=== PATIENT | female | born 1975 | race Caucasian/White ===

== ENCOUNTER 2016-06-11 22:39 | Emergency (ER) | payer BC, OTHER ==
[~2016-06-11] VITALS: Ht 162.6 cm; Wt 77.7 kg
[~2016-06-11 22:39] MED LIST: MOTRIN 600600 MG/TAB PO; PERCOCET 325 MG1 TA2 PO; PRENATAL1 TA1 PO; VALTREX 50500 MG/TAB PO
[2016-06-11 22:46] VITALS: TEMP 98
[2016-06-11] MEDS ORDERED: EFFEXOR XR75 MG/CAP PO (23:09)
[2016-06-11] MEDS ORDERED: EFFEXOR-XR150 MG PO (23:09)
[2016-06-11] MEDS ORDERED: PROTONIX 40MG T40 MG PO ×2 (23:10→23:15)
[2016-06-11] MEDS ORDERED: ZEMBRACE S3 MG/0.5 M SQ (23:10)
[2016-06-11] MEDS ORDERED: CAMBIA50 MG PO (23:13)
[2016-06-11] MEDS ORDERED: TOPAMAX 100MG100 M1 PO (23:13)
[2016-06-11] MEDS ORDERED: ULTRAM 50MG TAB50 MG PO (23:53)
[2016-06-11] MEDS ORDERED: ZOFRAN8 MG PO (23:53)
[2016-06-12 01:28] VITALS: BP 140/84; PULSE 75
== END 2016-06-12 01:35 | disposition home or self-care (01) ==
LOC: COL.ER 22:39
DX: R51 Headache (principal); R20.2 Paresthesia of skin
CPT/HCPCS: J1100; J1110; J1200; J1885; J2405; J2550; J2765; J7030

== ENCOUNTER 2016-08-08 18:18 | Observation (INO) | payer BC ==
[~2016-08-08] VITALS: Ht 162.6 cm; Wt 80.1 kg
[~2016-08-08 18:18] MED LIST changes: +CAMBIA50 MG PO; +EFFEXOR XR75 MG/CAP PO; +EFFEXOR-XR150 MG PO; +PROTONIX 40MG T40 MG PO; +TOPAMAX 100MG100 M1 PO; +ULTRAM 50MG TAB50 MG PO; +ZEMBRACE S3 MG/0.5 M SQ; +ZOFRAN8 MG PO
[2016-08-08 19:36] LABS: HEMOGLOBIN 12.4 g/dl (12.5-16.0); MEAN CELL VOLUME 87 fl (80.0-100.0); MEAN CORPUSCULAR HEMOGLOBIN 31 pg (27.0-31.0); MEAN CORPUSCULAR HGB CONC 35 g/dl (33.0-37.0); MEAN PLATELET VOLUME 10.5 fl (7.4-10.4); PLATELET COUNT 179 K/mm3 (130-400); RED BLOOD COUNT 4.05 M/mm3 (4.10-5.30); REDCELL DISTRIBUTION WIDTH-CV 13.3 % (11.5-14.5); WHITE BLOOD COUNT 12.6 K/mm3 (4.8-10.8)
[2016-08-08 19:42] LABS: ADD PATHOLOGY DIFF REVIEW NO; HEMATOCRIT 35.4 % (37.0-47.0)
[2016-08-08 19:47] LABS: ADJUSTED CALCIUM 9.2 mg/dL (8.4-10.2); ALBUMIN 3.7 gm/dL (3.5-5.0); BILIRUBIN,TOTAL 2.6 mg/dL (0.0-1.0); C-REACTIVE PROTEIN 4.9 mg/dL (0.0-0.9); CREATININE, serum 1.31 mg/dL (0.52-1.25); TOTAL PROTEIN 6.8 gm/dL (6.4-8.2)
[2016-08-08 19:51] LABS: BAND 8 % (0-10); METAMYELOCYTE 2 % (0-0); NEUTROPHILS 70 % (42.0-75.2); TOTAL CELLS COUNTED 100
[2016-08-08 19:52] LABS: ANISOCYTOSIS 1+; POTASSIUM 2.7 mmol/L (3.4-5.0)
[2016-08-08 20:03] LABS: ERYTHROCYTE SEDIMENTATION RATE 37 mm/hr (0-20)
[2016-08-08 21:53] VITALS: BP 125/83; PULSE 93; TEMP 98.8
[2016-08-08] MEDS ORDERED: PROTONIX20 MG PO (22:25)
[2016-08-08] MEDS ORDERED: CONCERTA18 MG PO (22:28)
[2016-08-08] MEDS ORDERED: SUBOXONE 8 MG-21 TAB SL (22:29)
[2016-08-08] MEDS ORDERED: BRINTELLIX10 PO (22:29)
[2016-08-08] MEDS ORDERED: PHENERGAN 25 TA25 MG PO (22:30)
[2016-08-08] MEDS ORDERED: RECLIPSEN 0.151 TAB PO (22:31)
[2016-08-08] MEDS ORDERED: ZEMBRACE S3 MG/0.5 M SQ (22:32)
[2016-08-09 03:45] VITALS: BP 123/74; PULSE 92; TEMP 98.5
[2016-08-09 07:50] VITALS: BP 122/73; PULSE 86; TEMP 97.7
[2016-08-09 07:53] LABS: MEAN CELL VOLUME 88 fl (80.0-100.0); MEAN CORPUSCULAR HGB CONC 34 g/dl (33.0-37.0); MEAN PLATELET VOLUME 10.5 fl (7.4-10.4); PLATELET COUNT 158 K/mm3 (130-400); RED BLOOD COUNT 3.56 M/mm3 (4.10-5.30); REDCELL DISTRIBUTION WIDTH-CV 13.5 % (11.5-14.5); WHITE BLOOD COUNT 10.8 K/mm3 (4.8-10.8)
[2016-08-09 08:00] LABS: ADD PATHOLOGY DIFF REVIEW NO; HEMATOCRIT 31.2 % (37.0-47.0); HEMOGLOBIN 10.7 g/dl (12.5-16.0); MEAN CORPUSCULAR HEMOGLOBIN 30 pg (27.0-31.0)
[2016-08-09 08:03] LABS: CALCIUM 8.2 mg/dL (8.4-10.2); CREATININE, serum 0.96 mg/dL (0.52-1.25)
[2016-08-09 13:56] VITALS: BP 133/84; PULSE 97; TEMP 97.8
[2016-08-09 14:39] LABS: ANISOCYTOSIS 1+; BAND 15 % (0-10); HYPOCHROMIA 1+; NEUTROPHILS 50 % (42.0-75.2); PLATELET ESTIMATE NORMAL (NORMAL); TOTAL CELLS COUNTED 100
[2016-08-09 16:05] VITALS: BP 120/72; PULSE 89; TEMP 97.9
[2016-08-09 20:01] VITALS: BP 128/86; PULSE 96; TEMP 97
[2016-08-09 23:45] VITALS: BP 105/76; PULSE 100; TEMP 97.8
[2016-08-10 02:56] VITALS: BP 125/74; PULSE 90; TEMP 99.1
[2016-08-10 07:30] VITALS: BP 126/80; PULSE 81; TEMP 98.6
[2016-08-10 07:46] LABS: ADJUSTED CALCIUM 9.2 mg/dL (8.4-10.2); ALBUMIN 2.9 gm/dL (3.5-5.0); BILIRUBIN,TOTAL 0.8 mg/dL (0.0-1.0); CALCIUM 8.3 mg/dL (8.4-10.2); CREATININE, serum 0.6 mg/dL (0.52-1.25); POTASSIUM 3.3 mmol/L (3.4-5.0); TOTAL PROTEIN 5.3 gm/dL (6.4-8.2)
[2016-08-10 11:39] VITALS: BP 126/82; PULSE 87; TEMP 98.4
[2016-08-10 15:48] VITALS: BP 129/88; PULSE 94; TEMP 97.6
[2016-08-10] MEDS ORDERED: MAGIC MOUTH PO (17:14)
== END 2016-08-10 18:45 | disposition home or self-care (01) ==
LOC: COL.ER 18:18 → MEDICAL 20:25
PROVIDERS: Emergency Medicine; Family Medicine; Physician Assistant
DX: R11.2 Nausea with vomiting, unspecified (principal); E87.2 Acidosis; E87.8 Other disorders of electrolyte and fluid balance, not elsewhere classified; E87.6 Hypokalemia; I77.6 Arteritis, unspecified; G43.909 Migraine, unspecified, not intractable, without status migrainosus
CPT/HCPCS: G0378; J1885; J2270; J2405; J7030

== ENCOUNTER → 2016-08-23 | Outpatient (CLI) | payer BC ==
[~2016-08-23] MED LIST changes: +BRINTELLIX10 PO; +CIPRO 500MG TA500 MG PO; +CONCERTA18 MG PO; +FLAGYL500 MG PO; +MAGIC MOUTH PO; +NORCO 325 MG-51 TAB PO; +PHENERGAN 25 TA25 MG PO; +PROTONIX20 MG PO; +RECLIPSEN 0.151 TAB PO; +SUBOXONE 8 MG-21 TAB SL; +ZOFRAN 4MG T4 MG/TAB PO
== END ==
LOC: COL.VAS 09:45
DX: R53.1 Weakness (principal)

== ENCOUNTER → 2016-09-27 | Outpatient (CLI) | payer BC | LOC: COL.RAD 08:10 | DX: R11.11 Vomiting without nausea (principal); R19.4 Change in bowel habit | CPT/HCPCS: A9541 ==

== ENCOUNTER 2016-09-28 19:16 | Emergency (ER) | payer BC ==
[~2016-09-28] VITALS: Ht 162.6 cm; Wt 78.2 kg
[~2016-09-28 19:16] MED LIST changes: -CIPRO 500MG TA500 MG PO; -FLAGYL500 MG PO; -NORCO 325 MG-51 TAB PO; -ZOFRAN 4MG T4 MG/TAB PO
[2016-09-28 19:30] VITALS: BP 144/89; TEMP 98.7
[2016-09-28 20:24] LABS: BASO % 0.3 % (0.0-2.0); EOS # 0.1 (0.0-0.7); EOS % 0.7 % (0-4.0); GRAN # 7.8 (1.4-6.5); GRAN % 64.7 % (42.2-75.2); HEMOGLOBIN 12.2 g/dl (12.5-16.0); LYMPH # 3.4 (1.2-3.4); LYMPH % 28.3 % (20.0-51.0); MEAN CELL VOLUME 93 fl (80.0-100.0); MEAN CORPUSCULAR HEMOGLOBIN 31 pg (27.0-31.0); MEAN CORPUSCULAR HGB CONC 33 g/dl (33.0-37.0); MEAN PLATELET VOLUME 9.4 fl (7.4-10.4); MONO # 0.7 (0.1-0.6); MONO % 5.8 % (1.7-9.3); PLATELET COUNT 396 K/mm3 (130-400); RED BLOOD COUNT 3.99 M/mm3 (4.10-5.30); REDCELL DISTRIBUTION WIDTH-CV 13.6 % (11.5-14.5); WHITE BLOOD COUNT 12.1 K/mm3 (4.8-10.8)
[2016-09-28 20:37] LABS: ADJUSTED CALCIUM 8.6 mg/dL (8.4-10.2); ALBUMIN 4.7 gm/dL (3.5-5.0); BILIRUBIN,TOTAL 0.5 mg/dL (0.0-1.0); CALCIUM 9.2 mg/dL (8.4-10.2); CREATININE, serum 0.63 mg/dL (0.52-1.25); POTASSIUM 3.5 mmol/L (3.4-5.0); TOTAL PROTEIN 8.1 gm/dL (6.4-8.2)
[2016-09-28 21:14] LABS: PH 5 (5-8); URINE APPEARANCE Hazy; URINE BACTERIA Rare /hpf; URINE BILIRUBIN Negative (NEGATIVE); URINE BLOOD 1+ (NEGATIVE); URINE COLOR Yellow; URINE GLUCOSE Negative (NEGATIVE); URINE KETONE Negative (NEGATIVE); URINE RBC 0-2 /hpf; URINE UROBILINOGEN Negative (NEGATIVE)
[2016-09-28] MEDS ORDERED: NORCO 325 MG-51 TAB PO (22:39)
[2016-09-28] MEDS ORDERED: CIPRO 500MG TA500 MG PO (22:39)
[2016-09-28] MEDS ORDERED: ZOFRAN 4MG T4 MG/TAB PO (22:39)
[2016-09-28] MEDS ORDERED: FLAGYL500 MG PO (22:39)
[2016-09-28 23:01] VITALS: PULSE 87
== END 2016-09-28 23:02 | disposition home or self-care (01) ==
LOC: COL.ER 19:16
PROVIDERS: Emergency Medicine
DX: K52.9 Noninfective gastroenteritis and colitis, unspecified (principal); R10.32 Left lower quadrant pain
CPT/HCPCS: J7030; Q9967

== ENCOUNTER 2017-01-03 14:25 | Emergency (ER) | payer BC ==
[~2017-01-03] VITALS: Ht 160 cm; Wt 85.9 kg
[~2017-01-03 14:25] MED LIST changes: +CIPRO 500MG TA500 MG PO; +FLAGYL500 MG PO; +NORCO 325 MG-51 TAB PO; +ZOFRAN 4MG T4 MG/TAB PO
[2017-01-03 16:40] LABS: BASO % 0.2 % (0.0-2.0); EOS % 0.1 % (0-4.0); GRAN # 10.5 (1.4-6.5); GRAN % 79.2 % (42.2-75.2); HEMATOCRIT 41.6 % (37.0-47.0); HEMOGLOBIN 14.3 g/dl (12.5-16.0); LYMPH # 2.1 (1.2-3.4); LYMPH % 16.1 % (20.0-51.0); MEAN CELL VOLUME 88 fl (80.0-100.0); MEAN CORPUSCULAR HEMOGLOBIN 30 pg (27.0-31.0); MEAN CORPUSCULAR HGB CONC 34 g/dl (33.0-37.0); MEAN PLATELET VOLUME 10.1 fl (7.4-10.4); MONO # 0.5 (0.1-0.6); PLATELET COUNT 265 K/mm3 (130-400); RED BLOOD COUNT 4.73 M/mm3 (4.10-5.30); REDCELL DISTRIBUTION WIDTH-CV 14.6 % (11.5-14.5); WHITE BLOOD COUNT 13.2 K/mm3 (4.8-10.8)
[2017-01-03 16:54] LABS: ADJUSTED CALCIUM 8.8 mg/dL (8.4-10.2); ALBUMIN 4.6 gm/dL (3.5-5.0); BILIRUBIN,TOTAL 0.6 mg/dL (0.0-1.0); CALCIUM 9.3 mg/dL (8.4-10.2); CREATININE, serum 0.56 mg/dL (0.52-1.25); POTASSIUM 4.2 mmol/L (3.4-5.0); TOTAL PROTEIN 8.1 gm/dL (6.4-8.2)
[2017-01-03 19:07] LABS: PH 8 (5-8); URINE APPEARANCE Hazy; URINE BACTERIA None Seen /hpf; URINE BILIRUBIN Negative (NEGATIVE); URINE BLOOD Negative (NEGATIVE); URINE COLOR Yellow; URINE GLUCOSE Negative (NEGATIVE); URINE KETONE Negative (NEGATIVE); URINE RBC 0-2 /hpf; URINE UROBILINOGEN Negative (NEGATIVE); URINE WBC None Seen /hpf
[2017-01-03 20:08] VITALS: BP 140/84; PULSE 87; TEMP 98.1
== END 2017-01-03 20:11 | disposition home or self-care (01) ==
LOC: COL.ER 14:25
PROVIDERS: Emergency Medicine
DX: R51 Headache (principal); R41.840 Attention and concentration deficit; F32.9 Major depressive disorder, single episode, unspecified; Z86.69 Personal history of other diseases of the nervous system and sense organs
CPT/HCPCS: J1885; J2405; J7030

== ENCOUNTER 2017-10-01 16:25 | Emergency (ER) | payer BC ==
[~2017-10-01] VITALS: Ht 162.6 cm; Wt 90.0 kg
[2017-10-01 16:28] VITALS: TEMP 98
[2017-10-01 16:55] LABS: COLLECTION METHOD CLEAN CATCH
[2017-10-01 17:03] LABS: BUDDING YEAST Present /hpf; MUCOUS Present /lpf; PH 6 (5-8); SQUAMOUS EPITHELIAL 0-2 /hpf; URINE APPEARANCE Hazy; URINE BACTERIA None Seen /hpf; URINE BILIRUBIN Negative (NEGATIVE); URINE BLOOD 2+ (NEGATIVE); URINE COLOR Amber; URINE GLUCOSE Negative (NEGATIVE); URINE KETONE Negative (NEGATIVE); URINE LEUKOCYTE ESTERASE 1+ (NEGATIVE); URINE NITRATE Positive (NEGATIVE); URINE PROTEIN(semi-quant) 2+ (NEGATIVE); URINE RBC >50 /hpf; URINE UROBILINOGEN >=4.0 mg/dL (NEGATIVE)
[2017-10-01 18:03] LABS: BASO # 0.1 (0.0-0.2); BASO % 0.4 % (0.0-2.0); EOS # 0.1 (0.0-0.7); EOS % 0.4 % (0-4.0); GRAN # 10.8 (1.4-6.5); GRAN % 76.6 % (42.2-75.2); HEMATOCRIT 40.8 % (37.0-47.0); HEMOGLOBIN 13.2 g/dl (12.5-16.0); LYMPH # 2.5 (1.2-3.4); LYMPH % 17.5 % (20.0-51.0); MEAN CELL VOLUME 91 fl (80.0-100.0); MEAN CORPUSCULAR HEMOGLOBIN 30 pg (27.0-31.0); MEAN CORPUSCULAR HGB CONC 32 g/dl (33.0-37.0); MONO # 0.7 (0.1-0.6); MONO % 4.6 % (1.7-9.3); PLATELET COUNT 254 K/mm3 (130-400); RED BLOOD COUNT 4.48 M/mm3 (4.10-5.30); REDCELL DISTRIBUTION WIDTH-CV 14.3 % (11.5-14.5)
[2017-10-01 18:20] LABS: ALBUMIN 4.1 gm/dL (3.5-5.0); BILIRUBIN,TOTAL 0.3 mg/dL (0.0-1.0); CALCIUM 8.8 mg/dL (8.4-10.2); CREATININE, serum 0.75 mg/dL (0.52-1.25); TOTAL PROTEIN 7.3 gm/dL (6.4-8.2)
[2017-10-01] MEDS ORDERED: DIFLUCAN150 MG PO (18:54)
[2017-10-01] MEDS ORDERED: CEFTIN 250250 MG/TAB PO (18:54)
[2017-10-01] MEDS ORDERED: ZOFRAN ODT4 MG PO (18:55)
[2017-10-01] MEDS ORDERED: ULTRAM 50MG TAB50 MG PO (19:09)
[2017-10-01 19:50] VITALS: BP 116/77; PULSE 91
== END 2017-10-01 19:52 | disposition home or self-care (01) ==
LOC: COL.ER 16:25
PROVIDERS: Emergency Medicine; Nurse Practitioner
DX: N39.0 Urinary tract infection, site not specified (principal); B37.3 Candidiasis of vulva and vagina; F32.9 Major depressive disorder, single episode, unspecified; G43.909 Migraine, unspecified, not intractable, without status migrainosus
CPT/HCPCS: J1885; J2405; J7030

== ENCOUNTER 2021-06-27 12:45 | Outpatient (RCR) | payer BC, OTHER ==
[~2021-06-27 12:45] MED LIST changes: +CEFTIN 250250 MG/TAB PO; +DIFLUCAN150 MG PO; +ZOFRAN ODT4 MG PO
== END 2021-07-07 | disposition home or self-care (01) ==
LOC: MKS.ESL.PT
DX: I89.0 Lymphedema, not elsewhere classified (principal)

== ENCOUNTER → 2021-08-29 12:25 | Outpatient (RCR) | payer BC, OTHER | END | disposition home or self-care (01) | LOC: MKS.ESL.PT 07-11 08:45 | DX: I89.0 Lymphedema, not elsewhere classified (principal) ==